=== PATIENT | female | born 1960 | race Caucasian/White ===

== ENCOUNTER 2018-12-30 09:51 | Emergency (ER) | payer BC ==
[2018-12-30] MEDS ORDERED: Amoxicillin/Potassium Clav 875 MG TAB ONE (10:11)
== END 2018-12-30 10:15 | disposition home or self-care (01) ==
LOC: BURERS 09:51
DX: S51.851A Open bite of right forearm, initial encounter (principal); K21.9 Gastro-esophageal reflux disease without esophagitis; Z79.899 Other long term (current) drug therapy; W55.01XA Bitten by cat, initial encounter
CPT/HCPCS: 99283